=== PATIENT | female | born 1960 | race Caucasian/White ===

== ENCOUNTER → 2018-04-22 | Outpatient (CLI) | payer BC ==
[~2018-04-22] MED LIST: ACE3 PO; AMI25 PO; AMIT-108 PO; BUPR-121 PO; ESTR1PAT77 TD; IBU200 PO; PAN40 PO; PER PO
--- NOTE | 2018-04-22 11:22 | RADIOLOGY IMAGING REPORT ---
FACILITY: [facility] [place] PATIENT NAME: Tommie Levy : 1960 MR: [id number] V: [id number] EXAM DATE: ORDERING PHYSICIAN: NESHA SALES TECHNOLOGIST: Location: [facility] Patient: Tommie Levy : 1960 Visit/Account:[id number] Date of Sevice: 04/22/2018 3 views right shoulder Indication: Pain in the right shoulder Comparison: Unavailable Findings: Alignment is anatomic at the glenohumeral joint with degenerative narrowing, increased subchondral sc lerosis and a large bony spur projecting from the inferior portion of the femoral head. The transver se dimension of the spur measures approximately 2.5 cm. Acromial humeral spaces within normal limits . Mild AC joint arthrosis. IMPRESSION: 1. Moderate to severe degenerative change glenohumeral joint as above. Report Dictated By: Satish Atkins MD at 04/22/2018 11:17 AM Report E-Signed By: Satish Atkins MD at 04/22/2018 11:19 AM WSN:[email or web address]
== END ==
LOC: RAD 10:56
PROVIDERS: ATTEND Chiropractor
DX: M25.511 Pain in right shoulder (principal)